=== PATIENT | female | born 1945 | race Caucasian/White ===

== ENCOUNTER 2020-03-09 07:51 | Outpatient (REF) | payer MEDICARE, SELFPAY ==
--- NOTE | 2020-03-09 | US_ITS ---
EXAMINATION: US RETROPERITONEAL LIMITED (RENAL ONLY) CLINICAL INFORMATION: Renal calculi. COMPARISON: MRI abdomen 02/18/2019. CT abdomen and pelvis 01/26/2019. Renal ultrasound 01/04/2019 and 12/25/2017. KUB 06/05/2016 and 05/01/2016. TECHNIQUE: Real-time imaging of the kidneys. FINDINGS: RIGHT KIDNEY: 9.9 x 4.4 x 5.2 cm (SAG x AP x TRV). The kidney is normal in size, contour, and echogenicity. Renal cortical thickness is normal. No hydronephrosis. There are multiple small cysts. The largest upper pole cyst measures 2.4 x 2.2 x 2.5 cm. There are echogenic stones measuring 0.3 x 0.3 cm in the lower pole and 0.3 x 0.3 cm in the midpole. LEFT KIDNEY: 8.7 x 4.3 x 4.6 cm (SAG x AP x TRV). The kidney is normal in size, contour, and echogenicity. Renal cortical thickness is normal. No hydronephrosis. There are multiple small cysts seen. The largest cyst in the upper pole measures 1.9 x 1.6 x 1.6 cm. There is a complex midpole cyst measuring 1.1 x 1.2 x 1.2 cm. There are several echogenic stones. The largest stone in lower pole measures 0.4 x 0.5 cm. US/US renal BI IMPRESSION: Bilateral renal cysts. There is a complex cyst midpole left kidney. Bilateral nonobstructive echogenic calculi without caliectasis or hydronephrosis.
== END 2020-03-09 07:52 | disposition home or self-care (01) ==
LOC: HO.US 07:51
PROVIDERS: PCP Internal Medicine; Visit Provider Urology
DX: N20.0 Calculus of kidney (principal)
CPT/HCPCS: 76775

== ENCOUNTER → 2020-03-24 08:35 | Outpatient (BNVA) | payer MEDICARE, SELFPAY | PROVIDERS: PCP Internal Medicine; Visit Provider Urology | DX: N20.0 Calculus of kidney (principal); N28.1 Cyst of kidney, acquired | CPT/HCPCS: Q3014 ==

== ENCOUNTER 2021-03-19 10:21 | Outpatient (REF) | payer MEDICARE, SELFPAY ==
--- NOTE | ~2021-03-19 | US_ITS ---
EXAMINATION: US RETROPERITONEAL LIMITED (RENAL ONLY) CLINICAL INFORMATION: Cyst of kidney, acquired. COMPARISON: Bilateral renal ultrasound dated 03/09/2020. MR abdomen without and with contrast dated 02/18/2019. CT abdomen and pelvis without and with contrast dated 01/26/2019. Renals only ultrasound dated 01/04/2019. KUB dated 06/05/2016 and 05/01/2016. TECHNIQUE: Real-time imaging of the kidneys. FINDINGS: RIGHT KIDNEY: 10.2 x 4.2 x 5.4 cm (SAG x AP x TRV). The kidney is normal in size, contour, and echogenicity. There is renal cortical thinning. There are 4 right renal cysts similar to previous exams. The largest measures 2.4 x 1.9 x 2.5 cm in the upper pole. There are 2 echogenic densities in the lower pole suggestive of small stones measuring 3 and 4 mm. No hydronephrosis. LEFT KIDNEY: 8.8 x 5.6 x 4.5 cm (SAG x AP x TRV). The left kidney is lobulated in shape. There are multiple left renal cysts, largest measuring 2.2 x 1.9 x 2.6 cm in the upper pole. There is a 3 mm echogenic density in the lower pole questionable for a small stone. There is a 3.2 x 2.7 x 2.6 cm echogenic area in the lateral midpole. It is uncertain whether this represents an echogenic mass or is related to lobulated contour of the left kidney and echogenic renal sinus fat. This is similar to previous ultrasounds. No hydronephrosis. US/US renal BI IMPRESSION: Bilateral renal cysts similar to previous exams. Probable small bilateral renal stones. Right renal cortical thinning. Lobulated contour of the left kidney. 3.2 x 2.7 x 2.6 cm echogenic area in the lateral midpole of the left kidney similar to previous renal ultrasounds. No mass has been seen on prior CT or MRI of the kidneys, and this is probably related to lobulated contour and prominent renal sinus fat. If there is clinical suspicion of a renal mass, a contrast-enhanced CT or MRI could be considered.
== END 2021-03-19 10:22 | disposition home or self-care (01) ==
LOC: HO.US 10:21
PROVIDERS: PCP Internal Medicine; Visit Provider Urology
DX: N28.1 Cyst of kidney, acquired (principal); N20.0 Calculus of kidney
CPT/HCPCS: 76775

== ENCOUNTER → 2021-04-13 08:47 | Outpatient (BNVA) | payer MEDICARE, SELFPAY | PROVIDERS: PCP Internal Medicine; Visit Provider Urology | DX: N20.0 Calculus of kidney (principal); N28.1 Cyst of kidney, acquired | CPT/HCPCS: 99212 ==

== ENCOUNTER 2022-02-20 13:09 | Outpatient (REF) | payer MEDICARE, SELFPAY ==
--- NOTE | ~2022-02-20 | US_ITS ---
EXAMINATION: US RETROPERITONEAL LIMITED (RENAL ONLY) CLINICAL INFORMATION: Calculus of kidney. COMPARISON: Ultrasound renal 03/19/2021 and 03/09/2020. CT abdomen and pelvis 01/26/2019. X-ray KUB 05/16/2016 and 05/01/2016. MRI abdomen February 2019. TECHNIQUE: Real-time imaging of the kidneys. FINDINGS: RIGHT KIDNEY: 10.8 x 4.6 x 5.2 cm (SAG x AP x TRV). The kidney is normal in size, contour, and echogenicity. Renal cortical thickness is normal. There are multiple cysts, largest measuring 2.2 x 1.8 x 1.8 cm in the upper pole. There is a stone or cluster of smaller stones in the midpole measuring 5 x 2 x 2 mm. No renal hydronephrosis. LEFT KIDNEY: 10.0 x 4.6 x 4.7 cm (SAG x AP x TRV). The kidney is normal in size, and echogenicity. There is a 3.3 x 2.9 x 3.6 cm round echogenic mass-like density in the midpole. This is similar to previous ultrasounds. When compared with previous CT scan this probably is related to abnormal shape and lobulation of the left kidney. There are multiple cysts, largest measuring 2.1 x 2 x 2.7 cm in the upper pole. There is a 3 mm stone in the lower pole. No renal hydronephrosis. US/US renal BI IMPRESSION: Bilateral renal stones. Bilateral renal cysts. Stable 3 cm echogenic area in the midpole of the left kidney. When compared with previous CT and MRI exams this probably is related to abnormal shape and lobulation of the left kidney as opposed to renal mass.
== END 2022-02-20 13:10 | disposition home or self-care (01) ==
LOC: HO.US 13:09
PROVIDERS: Visit Provider Urology
DX: N20.0 Calculus of kidney (principal); N28.1 Cyst of kidney, acquired
CPT/HCPCS: 76775

== ENCOUNTER → 2022-04-16 08:18 | Outpatient (BNVA) | payer MEDICARE, SELFPAY | PROVIDERS: PCP Internal Medicine; Visit Provider Urology | DX: N20.0 Calculus of kidney (principal); N28.1 Cyst of kidney, acquired | CPT/HCPCS: 99212 ==

== ENCOUNTER → 2022-08-23 13:31 | Outpatient (BNVA) | payer MEDICARE, SELFPAY | PROVIDERS: PCP Internal Medicine; Visit Provider Urology | DX: N28.1 Cyst of kidney, acquired (principal) | CPT/HCPCS: Q3014 ==

== ENCOUNTER 2022-08-28 12:50 | Outpatient (REF) | payer MEDICARE, SELFPAY ==
--- NOTE | ~2022-08-28 | MR_ITS ---
EXAMINATION: MRI KIDNEY WITH AND WITHOUT CONTRAST CLINICAL INFORMATION: Follow up renal cyst. COMPARISON: Previous renal ultrasound most recent February 2022, MRI of the abdomen February [address] of the abdomen and pelvis January 2019. TECHNIQUE: Sagittal, axial and coronal sequences through the abdomen with and without contrast. Patient received 5.5 mL Gadavist IV contrast. FINDINGS: The lung bases are clear. The liver is normal in size, shape and signal. No focal liver lesion is seen. The gallbladder is normal. There is no biliary duct dilatation. The pancreas is normal. The main pancreatic duct is normal. The spleen is normal. The adrenal glands are normal. There are areas of cortical thinning or scarring in the left kidney. There is a 2.7 cm central mass in the mid left kidney. This is low signal on T1-weighted sequences, heterogeneous but predominantly high signal on T2-weighted sequences and demonstrates enhancement. There are multiple bilateral renal cysts. There is a 2 cm complex cyst in the upper pole of the right kidney. This is high signal on T1 and T2-weighted sequences. Evaluation for enhancement is difficult due to intrinsic high signal on T1-weighted sequences but no definite enhancement is appreciated. There is a 1.7 x 2 cm complex cyst in the posterior upper to midpole of the left kidney. This is low signal on T1 with high signal dependent fluid level, high signal on T2 with dependent low signal fluid level and demonstrates no evidence of enhancement. There are several small high signal T1 low signal T2 nonenhancing cysts in the lower pole of the right kidney measuring 5 mm. There are multiple additional small simple cysts. There is atherosclerotic disease. No aneurysm. Vascular structures are otherwise normal. No ascites or adenopathy. Esophageal hernia. Visualized bowel is otherwise unremarkable. There are degenerative changes of the spine. MR/MR kidney wo/w con IMPRESSION: 2.7 cm solid enhancing renal mass in the left kidney. Multiple bilateral renal cysts some of which represent minimally complex cysts. Small to moderate esophageal hernia. 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
== END 2022-08-28 12:51 | disposition home or self-care (01) ==
LOC: HO.MRI 12:50
PROVIDERS: PCP Internal Medicine; Visit Provider Urology
DX: N28.1 Cyst of kidney, acquired (principal)
CPT/HCPCS: 74181; A9585

== ENCOUNTER → 2022-09-09 10:20 | Outpatient (BNVA) | payer MEDICARE, SELFPAY | PROVIDERS: PCP Internal Medicine; Visit Provider Urology | DX: N28.1 Cyst of kidney, acquired (principal); N20.0 Calculus of kidney; C64.9 Malignant neoplasm of unspecified kidney, except renal pelvis | CPT/HCPCS: 99212 ==

== ENCOUNTER 2022-09-25 14:46 | Outpatient (AMB) | payer MEDICARE, SELFPAY ==
--- NOTE | 2022-09-25 14:46 | A.OFFVIS_ITS ---
Intake Intake Visit Reasons: CT Findings(Per Dr Baig) Intake Note: Patient is present for Telephone CT Finding Per Dr Baig Urology Med: Terazosin Antibiotic Allergy: Cipro Blood Thinner: Aspirin Allergies oxycodone [OXYCODONE] Allergy (Intermediate, Verified 09/09/22 10:30) ITCHING acetaminophen [Percocet] Adverse Reaction (Unknown, Verified 09/09/22 10:30) itching ciprofloxacin [Cipro] Adverse Reaction (Unknown, Verified 09/09/22 10:30) can hardly walk, severe leg pain HPI HPI Comments History of Present Illness Details Janina is a pleasant female. She is a patient of Dr. Abad. She seen for the following urologic conditions - renal stones - complex renal cyst Telemedicine Evaluation 15 min Consultation [employer] [place] Video attempted MRI performed Appears to have area of enhancement upper pole left kidney intrarenal approximately 3 cm in size Given Janina background of hypertension, cardiac issues recommend assessment for cryotherapy Nephrolithiasis Recurrent Prior ESWL Stable for last few visits Complex renal cyst Known complex renal cyst followed with serial imaging Imaging - 2018 CT scan. Kidneys complex and shape. Multiple small stones in right kidney. 2.6 cm complex cyst upper pole right kidney. 1.6 cm solid lesion adjacent to upper pole of left kidney. Enhanced with contrast. Represents accessory splenule - 2020 renal ultrasound. Small stones unchanged. Cysts unchanged. - 04/01 renal ultrasound small stones, cyst unchanged - 08/30 2.7 cm solid enhancing renal mass in the left kidney PFSH Medical History Asthma Complex renal cyst GERD (gastroesophageal reflux disease) Renal cyst Renal stone Renal stones Rheumatoid arthritis Social History Household Members: Spouse Alcohol intake: never Current occupational status: retired Review of Systems Const All systems reviewed & are unremarkable except as noted in HPI and below Reports no additional complaints Resp Reports no additional complaints GI Reports no additional complaints Reports as per HPI Musc Reports no additional complaints Physical Exam Telemedicine evaluation Appropriate responses Regular breathing rate and rhythm HEENT Head: Yes normal to inspection Ears: hearing grossly normal bilaterally Eyes General: appearance normal, both eyes and all related structures Neck Neck: Yes normal visual inspection Chest Chest palpation & inspection: normal inspection of the chest Resp Effort & Inspection: normal respiratory effort and able to speak in complete sentences Assessment & Plan Assessment & Plan (1) Renal cell carcinoma: Code(s): C64.9 - Malignant neoplasm of unspecified kidney, except renal pelvis Plan Assessment for cryotherapy Patient Instructions: Imaging studies, laboratory and physical exam results were discussed and reviewed in detail. No major barriers to patient understanding were identified. An opportunity to ask questions regarding the treatment plan was provided. All questions were answered. The patient expressed understanding and agreement with the above treatment plan. The patient is aware they should contact our office by phone for worsening of their current condition or the appearance of new urologic symptoms. Compliance is encouraged with any medications and followup testing that is ordered. It is a privilege to participate in the urologic care of your patient. If you have any questions or concerns regarding treatment for the above conditions, or other urologic issues, please do not hesitate to contact me. The office telephone contact is [phone]. This note is constructed using voice recognition software. While every effort has been made to ensure accuracy lean six sigma black belt errors may have been included. Yours sincerely, Dr Maninder Joyner MD, [facility] - Urology Providers of Expert, Compassionate Care for the Genitourinary System Telehealth Telehealth Location of provider rendering services: practice address Location of patient: address on file Patient Identification confirmed using: Name, : Yes Telehealth method: video Patient verbally consented to treatment: Yes Patient verbally consented to billing insurance company: Yes Patient informed of any privacy concerns related to visit: Yes Coding Level of Care Code Tele Est Pt Level 3 (92385) Diagnoses Renal cell carcinoma C64.9
== END 2022-09-25 16:34 | disposition home or self-care (01) ==
LOC: HO.HUSH 14:46
PROVIDERS: PCP Internal Medicine; Visit Provider Urology
DX: C64.9 Malignant neoplasm of unspecified kidney, except renal pelvis (principal)
CPT/HCPCS: 99213

== ENCOUNTER → 2022-09-25 14:46 | Outpatient (BNVA) | payer MEDICARE, SELFPAY | PROVIDERS: PCP Internal Medicine; Visit Provider Urology | DX: C64.9 Malignant neoplasm of unspecified kidney, except renal pelvis (principal) | CPT/HCPCS: Q3014 ==

== ENCOUNTER 2022-10-22 09:18 | Outpatient (AMB) | payer MEDICARE, SELFPAY ==
--- NOTE | 2022-10-22 09:18 | A.OFFVIS_ITS ---
Intake Intake Visit Reasons: Surgical consult Intake Note: Patient is present for Telephone Surgical Consultation Urology Med: Terazosin Antibiotic Allergy: Ciprofloxacin Blood Thinner: Aspirin Pharmacy: [facility] Allergies oxycodone [OXYCODONE] Allergy (Intermediate, Verified 10/22/22 09:19) ITCHING acetaminophen [Percocet] Adverse Reaction (Unknown, Verified 10/22/22 09:19) itching ciprofloxacin [Cipro] Adverse Reaction (Unknown, Verified 10/22/22 09:19) can hardly walk, severe leg pain HPI HPI Comments History of Present Illness Details Janina is a pleasant female. She is a patient of Dr. Abad. She seen for the following urologic conditions - renal stones - complex renal cyst Telemedicine Evaluation 15 min Consultation [employer] [place] Video attempted MRI performed Appears to have area of enhancement upper pole left kidney intrarenal approximately 3 cm in size Initial assessment for cryotherapy suggested might have difficulty with localization Given Janina background of hypertension, cardiac issues Will get 2nd opinion for cryotherapy from Dr. York Nephrolithiasis Recurrent Prior ESWL Stable for last few visits Complex renal cyst Known complex renal cyst followed with serial imaging Imaging - 2018 CT scan. Kidneys complex and shape. Multiple small stones in right kidney. 2.6 cm complex cyst upper pole right kidney. 1.6 cm solid lesion adjacent to upper pole of left kidney. Enhanced with contrast. Represents accessory splenule - 2020 renal ultrasound. Small stones unchanged. Cysts unchanged. - 04/01 renal ultrasound small stones, cyst unchanged - 08/30 2.7 cm solid enhancing renal mass in the left kidney PFSH Medical History Asthma Complex renal cyst GERD (gastroesophageal reflux disease) Renal cyst Renal stone Renal stones Rheumatoid arthritis Social History Household Members: Spouse Alcohol intake: never Current occupational status: retired Review of Systems Const All systems reviewed & are unremarkable except as noted in HPI and below Reports no additional complaints Resp Reports no additional complaints GI Reports no additional complaints Reports as per HPI Musc Reports no additional complaints Physical Exam Telemedicine evaluation Appropriate responses Regular breathing rate and rhythm HEENT Head: Yes normal to inspection Ears: hearing grossly normal bilaterally Eyes General: appearance normal, both eyes and all related structures Neck Neck: Yes normal visual inspection Chest Chest palpation & inspection: normal inspection of the chest Resp Effort & Inspection: normal respiratory effort and able to speak in complete sentences Assessment & Plan Assessment & Plan (1) Renal cell carcinoma: Code(s): C64.9 - Malignant neoplasm of unspecified kidney, except renal pelvis Plan 2nd opinion regarding cryotherapy Orders: Referrals Interventional Radiology Referral C64.9 - Malignant neoplasm of unspecified kidney, except renal pelvis Patient Instructions: Imaging studies, laboratory and physical exam results were discussed and reviewed in detail. No major barriers to patient understanding were identified. An opportunity to ask questions regarding the treatment plan was provided. All questions were answered. The patient expressed understanding and agreement with the above treatment plan. The patient is aware they should contact our office by phone for worsening of t heir current condition or the appearance of new urologic symptoms. Compliance is encouraged with any medications and followup testing that is ordered. It is a privilege to participate in the urologic care of your patient. If you have any questions or concerns regarding treatment for the above conditions, or other urologic issues, please do not hesitate to contact me. The office telephone contact is [phone]. This note is constructed using voice recognition software. While every effort has been made to ensure accuracy fabric awning repairer errors may have been included. Yours sincerely, Dr Maninder Joyner MD, [facility] - Urology Providers of Expert, Compassionate Care for the Genitourinary System Telehealth Telehealth Location of provider rendering services: practice address Location of patient: address on file Patient Identification confirmed using: Name, : Yes Telehealth method: video Patient verbally consented to treatment: Yes Patient verbally consented to billing insurance company: Yes Patient informed of any privacy concerns related to visit: Yes Coding Level of Care Code Tele Est Pt Level 3 (65532) Diagnoses Renal cell carcinoma C64.9
== END 2022-10-22 11:08 | disposition home or self-care (01) ==
LOC: HO.HUSH 09:18
PROVIDERS: PCP Internal Medicine; Visit Provider Urology
DX: C64.9 Malignant neoplasm of unspecified kidney, except renal pelvis (principal)
CPT/HCPCS: 99213

== ENCOUNTER → 2022-10-22 09:18 | Outpatient (BNVA) | payer MEDICARE, SELFPAY | PROVIDERS: PCP Internal Medicine; Visit Provider Urology | DX: C64.9 Malignant neoplasm of unspecified kidney, except renal pelvis (principal); N20.0 Calculus of kidney; N28.1 Cyst of kidney, acquired | CPT/HCPCS: Q3014 ==